=== PATIENT | male | born 1950 | race Hispanic/Latino ===

== ENCOUNTER → 2020-05-08 09:50 | Outpatient (CLI) | payer MEDICARE, SELFPAY ==
[2020-05-08] MEDS: COVID-19 VACC, Ad26(JANSSEN)/PF 0.5 ML IM (10:05)
== END ==
PROVIDERS: Visit Provider Internal Medicine
DX: Z23 Encounter for immunization (principal)
CPT/HCPCS: 0031A; 91303

== ENCOUNTER → 2020-07-12 11:25 | Outpatient (CLI) | payer OTHER, SELFPAY ==
[2020-07-12 13:11] LABS: COVID19 -Nasal RAPID Negative (Negative)
== END ==
PROVIDERS: Visit Provider Physician Assistant
DX: Z20.822 Contact with and (suspected) exposure to COVID-19 (principal)
CPT/HCPCS: 87635; C9803

== ENCOUNTER 2020-07-14 14:07 | Day surgery (SDC) | payer OTHER, SELFPAY ==
[2020-07-14] VITALS (7 sets, daily range): BP systolic 111–132; BP diastolic 58–76; PULSE 63–68; RESP 14–16; TEMP 36.1–36.6; O2SAT 97–100; BMI 24.7
--- NOTE | 2020-07-14 12:03 | PM.HP.1 ---
History of Present Illness History of Present Illness Chief complaint: [facility] [place] Narrative: 70 year old male comes in today for consideration of a screening colonoscopy. Last colonoscopy in 2018, significant for 2 polyps in the ascending and recutm, tubular adenomas. There have been no lower GI symptoms suggesting disease such as change in bowel habits, bleeding, abdominal pain or anemia. There's been no family history of colon cancer or colon polyps. Overall health issues have been stable, including no major cardiac events for at least 6 weeks. PCP: Dr. 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 OSTEOARTHRITIS, MULTIPLE JOINTS Past Surgical History: Neck Right Shoulder Colonoscopy Family History: Both parents of tuberculosis Social History: Marital Status: Children: 4- 2 sons Jacob, 2 daughters Occupation: [employer], retired Household Members: Spouse Meds Home Medications and Allergies Home Medications Medication Instructions Recorded Confirmed Type ASPIRIN (#ASPIRIN) 325 mg PO BID #0 06/25/10 History DICLOFENAC SODIUM (VOLTAREN) 75 mg PO BIDCC #60 10/21/11 Rx lisinopril [Zestril] 20 mg PO BID #180 07/23/12 Rx carvedilol 07/14/20 History insulin aspart U-100 [Novolog unit SUBCUT 07/14/20 History Flexpen U-100 Insulin] Allergies Allergy/AdvReac Type Severity Reaction Status Date / Time Penicillins [PENICILLINS] Allergy Unknown Unverified 06/04/17 12:57 Review of Systems Review of Systems ROS: Yes All systems reviewed with the patient and are negative except as otherwise documented Exam Narrative Exam Narrative: GENERAL: Alert and oriented, appearing stated age and in no acute distress. HEENT: Head normocephalic/atraumatic. Pupils equal, round, and reactive to light and accomodation. Extraocular muscles intact. Tympanic membranes clear. Nasal mucosa moist, septum midline. Oral mucosa moist, no lesions. Neck soft and supple, no lymphadenopathy. LUNGS: Clear to ausculation bilaterally, no wheezes, rhonchi or rales. CV: Normal S1 and S2 with regular rate and rhythm, no audible murmurs, rubs or gallops. ABDOMEN: Soft, non-tender, non-distended, no organomegaly. Positive bowel sounds. EXTREMITIES: No clubbing, cyanosis, or edema. NEURO: Cranial nerves II through XII grossly intact, no focal deficits. PSYCH: Alert and oriented x 3. SKIN: No concerning lesions. Assessment & Plan Assessment & Plan narrative: 1. History of colon polyps 2. Screening for colon cancer Plan for colonoscopy. The nature and character of the procedure as well as anticipated results were discussed. The possibility of not completing the procedure was also discussed. Possible complications including aspiration pneumonia, bleeding, perforation and reaction to medications either for sedation or preparation and missed lesions were discussed. Questions were answered and proceeding to the colonoscopy was elected. Informed consent signed. I sincerely appreciate the referral allowing me to participate in this patient's care. Please contact me with any questions or concerns.
--- NOTE | 2020-07-14 12:09 | PM.OP.ENDO ---
Operative Date/Time/Diagnoses Date of procedure: 07/14/20 Procedure Notes SCOAP/Timeout: 3:10 p.m. Procedure in detail: ENDOSCOPIST: Melissa Collier MD Sedation RN: Zenia Preston RN Sedation start time: 3:11 p.m. Sedation end time: 4:16 p.m. PROCEDURE: Colonoscopy INDICATIONS: 1. History of colon polyps 2. Screening for colon cancer MEDICATION: Levsin 0.125 mg sublingual, incremental doses of Versed and fentanyl until appropriate level sedation achieved. ASA CLASS: 2 CECAL WITHDRAWAL TIME: 14 minutes COMPLICATIONS: None. EXTENT OF PROCEDURE: Cecum. QUALITY OF PREP: Fair with portions of liquid stool. PROCEDURE: Prior to insertion of the colonoscope, a digital rectal examination was accomplished with circumferential palpation of the distal rectal mucosa without significant findings being noted. The high-definition pediatric colonoscope was passed into the rectum in the usual fashion and advanced over to the cecum with difficulty due to tortuosity and redundancy. The ileocecal valve, appendiceal stoma, and medial wall all could be inspected and no abnormalities were seen. ASCENDING COLON: As the colonoscope was withdrawn, care was taken to expose and inspect the haustral folds and no abnormalities were seen. HEPATIC FLEXURE: Normal, no polyps, diverticula or other abnormalities. TRANSVERSE COLON: Normal, no polyps, diverticula or other abnormalities. DESCENDING COLON: Normal, no polyps, diverticula or other abnormalities. SIGMOID COLON: Normal, no polyps, diverticula or other abnormalities. RECTUM: Normal. J maneuver was produced. There was no significant perianal disease. The J maneuver was broken. The remainder of the rectum was inspected and there was minor external hemorrhoid disease. The scope was withdrawn. IMPRESSION: 1. Normal colonoscopy 2. External hemorrhoids PLAN: 1. Due to patient's age, this can be his last screening colonoscopy. The possibility of a missed lesion including a malignancy has been discussed with the patient previously. Potential alarm symptoms have been discussed and should be reported immediately.
[2020-07-14] MEDS: HYOSCYAMINE 0.125 MG TABLET PO (14:42)
[2020-07-14] MEDS: LACTATED RINGERS 1,000 ML 200 ML IV (14:42)
[2020-07-14] MEDS: MIDAZOLAM 5 MG/5 ML VIAL IV (15:58)
[2020-07-14] MEDS: fentaNYL 250 MCG/5 ML INJ IV (15:58)
== END 2020-07-14 17:05 | disposition home or self-care (01) ==
PROVIDERS: Referring Provider Student in an Organized Health Care Education/Training Program; Visit Provider Student in an Organized Health Care Education/Training Program
PROC: 0DJD8ZZ Inspection of Lower Intestinal Tract, Via Natural or Artificial Opening Endoscopic (ICD-10-PCS; CPT 45378; principal; 2020-07-14 15:15)
DX: Z12.11 Encounter for screening for malignant neoplasm of colon (principal); Z86.010 Personal history of colon polyps; K64.4 Residual hemorrhoidal skin tags
CPT/HCPCS: G0105; J2250; J3010

== ENCOUNTER → 2021-03-09 11:32 | Outpatient (CLI) | payer OTHER, SELFPAY ==
[2021-03-09 12:36] LABS: Add Manual Diff / Slide Review NO; Basophils Absolute Auto 100 /uL (0-100); Basophils Percent Auto 1.1 % (0-2); Eosinophils Absolute Auto 200 /uL (0-450); Eosinophils Percent Auto 2.5 % (2-4); Hematocrit 41.8 % (41-53); Hemoglobin 14.3 g/dL (13.5-17.5); Lymphocytes Absolute Auto 2700 /uL (1100-4500); Lymphocytes Percent Auto 29.2 % (25-40); Mean Corpuscular HGB Conc 34.2 % (30-36); Mean Corpuscular Volume 84.8 fL (80-100); Monocytes Absolute Auto 700 /uL (0-900); Monocytes Percent Auto 7.9 % (3-14); Neutrophils Absolute Auto 5400 /uL (1500-7000); Neutrophils Percent Auto 59.3 % (50-75); Platelet Count 390 X10^3/uL (150-400); Red Blood Cell Count 4.92 X10^6/uL (4.5-5.9); Red Cell Distribution Width 14.5 % (11.6-14.8); White Blood Cell Count 9.1 X10^3/uL (4.5-11.0)
[2021-03-09 12:57] LABS: Hemoglobin A1C% w Est Avg Glu 7.3 % (4.0-6.0)
[2021-03-09 13:04] LABS: Erythrocyte Sedimentation Rate 20 MM/HR (0-15)
[2021-03-09 13:26] LABS: Alanine Aminotransferase 24 IU/L (<50); Albumin 4.6 g/dL (3.5-5.0); Albumin Globulin Ratio 1.2 (1.0-2.8); Alkaline Phosphatase 115 U/L (38-126); Aspartate Aminotransferase 33 IU/L (17-59); Bilirubin Total 0.8 mg/dL (0.2-1.3); Blood Urea Nitrogen 27 mg/dL (9-20); Calcium 9.8 mg/dL (8.4-10.2); Carbon Dioxide 26 mmol/L (22-32); Chloride 105 mmol/L (98-107); Globulin 3.7 g/dL (1.7-4.1); Glucose 49 mg/dL (80-110); HEMOLYSIS < 15 (0-50); Potassium 4.5 mmol/L (3.4-5.1); Sodium 142 mmol/L (137-145); Total Protein 8.3 g/dL (6.3-8.2)
[2021-03-09 13:30] LABS: High Sensitivity CRP - Cardiac 0.8 mg/L (1.0-3.0)
== END ==
PROVIDERS: Referring Provider Ophthalmology; Visit Provider Ophthalmology
DX: E11.3591 Type 2 diabetes mellitus with proliferative diabetic retinopathy without macular edema, right eye (principal); H34.8112 Central retinal vein occlusion, right eye, stable
CPT/HCPCS: 36415; 80053; 83036; 85025; 85651; 86140

== ENCOUNTER → 2021-03-12 14:03 | Outpatient (CLI) | payer OTHER, SELFPAY ==
--- NOTE | 2021-03-12 | DI.US.S_ITS ---
PROCEDURE: US CAROTID DOPPLER BI INDICATIONS: CENTRAL RETNAL VEIN OCCLUSION TECHNIQUE: Color and pulse Doppler interrogation was performed of both carotid systems, with image documentation and velocity measurements. COMPARISON: None. FINDINGS: Stenosis calculations are based on SRU (Society of Radiologists in Ultrasound) criteria. Right side: Brachial blood pressure: Not evaluated. Common carotid artery peak systolic velocity: 67 cm/sec. Internal carotid artery peak systolic velocity: 210 cm/sec. Internal carotid artery end diastolic velocity: 66 cm/sec. External carotid artery peak systolic velocity: 173 cm/sec. ICA/CCA peak systolic ratio: 3.2 . Choi scale imaging description: Heavy scattered plaque. Percent internal carotid artery stenosis: 50-69% stenosis . Vertebral artery: Flow direction is antegrade. Left side: Brachial blood pressure: 142/84 mm Hg. Common carotid artery peak systolic velocity: 127 cm/sec. Internal carotid artery peak systolic velocity: 84 cm/sec. Internal carotid artery end diastolic velocity: 25 cm/sec. External carotid artery peak systolic velocity: 126 cm/sec. ICA/CCA peak systolic ratio: 7 . Choi scale imaging description: Mild scattered atheromatous change. Percent internal carotid artery stenosis: Less than 50% . Vertebral artery: Flow direction is antegrade. IMPRESSION: 1. 50-69% right internal carotid artery stenosis. 2. Less than 50% left internal carotid artery stenosis. Dictated by: Cesar Tristan [facility] Interpreted: Peterson Jacome MD on 03/12/2021 at 15:26 Transcribed by: DIONNE on 03/12/2021 at 15:28 Approved by: Peterson Jacome M.D. on 03/12/2021 at 17:29
== END ==
PROVIDERS: PCP Family Medicine; Referring Provider Ophthalmology; Visit Provider Ophthalmology
DX: E11.3591 Type 2 diabetes mellitus with proliferative diabetic retinopathy without macular edema, right eye (principal); H34.8111 Central retinal vein occlusion, right eye, with retinal neovascularization; I65.23 Occlusion and stenosis of bilateral carotid arteries
CPT/HCPCS: 93880

== ENCOUNTER → 2021-07-13 14:23 | Outpatient (CLI) | payer OTHER, SELFPAY ==
[2021-07-13 18:10] LABS: Prostate Specific Antigen 8.26 ng/mL (0.10-4.00)
== END ==
PROVIDERS: PCP Family Medicine; Referring Provider Urology; Visit Provider Urology
DX: R97.20 Elevated prostate specific antigen [PSA] (principal)
CPT/HCPCS: 36415; 84153

== ENCOUNTER 2022-03-11 12:30 | Outpatient (RCR) | payer OTHER, SELFPAY | END 2022-03-11 14:30 | LOC: CAR 12:30 | PROVIDERS: PCP Family Medicine; Referring Provider Surgery; Visit Provider Surgery | DX: Z95.1 Presence of aortocoronary bypass graft (principal) | CPT/HCPCS: 93798 ==

== ENCOUNTER 2022-07-07 19:34 | Emergency (ER) | payer OTHER, SELFPAY ==
[2022-07-07] VITALS (9 sets, daily range): BP systolic 111–124; BP diastolic 55–59; PULSE 77–81; RESP 16–19; TEMP 37; O2SAT 97–99; BMI 26.1
--- NOTE | 2022-07-07 20:09 | DI.RAD.S_ITS ---
PROCEDURE: XR CHEST 1V INDICATIONS: chest pain TECHNIQUE: One view of the chest was acquired. COMPARISON: [facility], , CHEST 1 VIEW, 07/26/2015, 1:19. FINDINGS: Surgical changes and devices: Postsurgical changes demonstrated in the mediastinum compatible with prior CABG. Lungs and pleura: There are low lung volumes. Evaluation limited due to lordotic projection. No definite acute airspace opacities. No pleural effusions or pneumothorax. Mediastinum: Mediastinal contours appear normal. Heart size is normal. Bones and chest wall: No suspicious bony lesions. Overlying soft tissues appear unremarkable. IMPRESSION: 1. No definite acute cardiopulmonary disease, with evaluation limited by low lung volumes and lordotic projection. Dictated by: Steve Chang M.D. on 07/07/2022 at 21:02 Approved by: Steve Chang M.D. on 07/07/2022 at 21:04
[2022-07-07] MEDS: SODIUM CHLORIDE 0.9% 1,000 ML 150 ML IV (20:18)
[2022-07-07 20:19] LABS: Add Manual Diff / Slide Review NO; Basophils Absolute Auto 100 /uL (0-100); Basophils Percent Auto 1.2 % (0-2); Eosinophils Absolute Auto 300 /uL (0-450); Eosinophils Percent Auto 3.4 % (2-4); Hematocrit 34.7 % (41-53); Hemoglobin 11.9 g/dL (13.5-17.5); Lymphocytes Absolute Auto 2900 /uL (1100-4500); Lymphocytes Percent Auto 36.5 % (25-40); Mean Corpuscular HGB Conc 34.2 % (30-36); Mean Corpuscular Hemoglobin 29.7 PG (26-34); Mean Corpuscular Volume 86.8 fL (80-100); Monocytes Absolute Auto 800 /uL (0-900); Neutrophils Absolute Auto 3900 /uL (1500-7000); Neutrophils Percent Auto 48.9 % (50-75); Platelet Count 336 X10^3/uL (150-400); Red Blood Cell Count 3.99 X10^6/uL (4.5-5.9); Red Cell Distribution Width 14.3 % (11.6-14.8)
[2022-07-07 20:20] LABS: INR 0.9 (0.9-1.3); Prothrombin Time 10.8 SECONDS (10.1-12.7)
[2022-07-07 20:22] LABS: PTT Partial Thromboplastin Tim 39 SECONDS (26-36)
[2022-07-07 20:25] LABS: Alanine Aminotransferase 31 IU/L (<50); Albumin 4.3 g/dL (3.5-5.0); Albumin Globulin Ratio 1.1 (1.0-2.8); Alkaline Phosphatase 144 U/L (38-126); Aspartate Aminotransferase 41 IU/L (17-59); BUN Creatinine Ratio 17.5 (6-22); Bilirubin Total 0.8 mg/dL (0.2-1.3); Blood Urea Nitrogen 48 mg/dL (9-20); Calcium 9.1 mg/dL (8.4-10.2); Carbon Dioxide 21 mmol/L (22-32); Chloride 100 mmol/L (98-107); Creatine Kinase 148 U/L (55-170); Estimated Glomerular Filt Rate 24 mL/min (>60); Glucose 145 mg/dL (80-110); HEMOLYSIS 61 (0-50); Lipase 176 U/L (23-300); Sodium 136 mmol/L (137-145); Total Protein 8.3 g/dL (6.3-8.2)
[2022-07-07 20:26] LABS: Potassium 4.6 mmol/L (3.4-5.1)
--- NOTE | 2022-07-07 20:29 | ED_ITS ---
HPI - Syncope General Chief Complaint: Syncope Stated Complaint: Syncope Time Seen by Provider: 07/07/22 19:37 Source: patient, family and EMS Mode of arrival: EMS Limitations: no limitations History of Present Illness HPI narrative: Patient is a 72-year-old male [place] Citizen speaking here with family who is interpreting presenting today after syncopal episode. He has a history of coronary artery disease, PCI LAD in 2014 and CABG in 2021 hyperlipidemia, reports that he was outside he came into the garage felt very lightheaded and passed out for 1-2 minutes. There was no shaking family found him he was awake alert and oriented. He denies any chest pain or palpitations. No shortness of breath. He has been outside a lot today not drinking a lot of water. He denies nausea or vomiting no abdominal pain overall feels okay now. He was in his normal state of health this morning no fevers. He is followed by cardiology Dr. Rowe. Related Data Home Medications Medication Instructions Recorded Confirmed ASPIRIN (#ASPIRIN) 325 mg PO BID ##0 06/25/10 carvedilol 25 mg tablet 07/14/20 insulin aspart U-100 100 unit/mL unit SUBCUT 07/14/20 (3 mL) subcutaneous pen (Novolog FlexPen U-100 Insulin aspart) Previous Rx's Medication Instructions Recorded DICLOFENAC SODIUM (VOLTAREN) 75 mg PO BIDCC ##60 10/21/11 lisinopril 20 mg tablet (Zestril) 20 mg PO BID ##180 07/23/12 Allergies Allergy/AdvReac Type Severity Reaction Status Date / Time Penicillins [PENICILLINS] Allergy Unknown Verified 07/07/22 20:18 Review of Systems Review of Systems ROS Unobtainable: All systems reviewed & are unremarkable except as noted in HPI and below Patient History Social History household members: significant other Smoking Status: Never smoker alcohol intake: never Smoking Status: Never smoker Substance Use Type: does not use Exam Initial Vital Signs Initial Vital Signs: Vital Signs Pulse Rate 80 07/07/22 19:39 Pulse Oximetry 98 07/07/22 19:39 GENERAL: Alert pleasant 72-year-old male and in no acute distress. HEENT: Head atraumatic,EOMI, pupils reactive, face symmetric, moist mucous membranes CARDIOVASCULAR: Regular rate and rhythm without murmurs, rubs or gallops. RESPIRATORY: Breath sounds equal bilaterally, no wheezes rales or rhonchi. ABDOMEN: Soft, nontender. Normoactive bowel sounds all 4 quadrants. No guarding or rebound. EXTREMITIES: Normal range of motion, no clubbing or edema. Neurovascularly intact NEUROLOGICAL: Alert and oriented x4.Normal gait and speech. Cranial nerves II through XII grossly intact. Good [id number]-[id number], good vddm-fa-[id number], strength equal bilaterally, no dysarthria or aphasia, sensation in tact to soft touch bilaterally, no visual changes, no facial droop SKIN: Warm, dry, no laceration, no petechiae, no rashes or lesions. Scores NIH Stroke Scale Level of Conciousness: Alert, keenly responsive Ask month/age: Answers both questions correctly. Open/close eyes, close hand: Performs both tasks correctly Best gaze horizontal: Normal Visual cabrera: No visual loss Facial palsy: Normal symetrical movement Left arm drift: No drift for full 10 sec Right arm drift: No drift for full 10 sec Left leg drift: No drift for full 5 sec Right leg drift: No drift for full 5 sec Limb ataxia: Absent Sensory on face/arms/legs: Normal, no sensory loss Best language: No aphasia, normal Dysarthria: Normal Extinction or inattention: No abnormality Total NIH Stroke scale score: 0 Course Orders Ordered: ED Orders 07/07/22 19:30 Complete Blood Count AUTO DIFF Stat Comprehensive Metabolic Panel Stat Lipase Stat PTT Partial Thromboplastin Caleb Stat Prothrombin Time INR Stat Troponin & CK Cardiac Panel Stat 07/07/22 20:09 XR chest 1V Stat EKG-12 Lead Stat 07/07/22 20:30 EKG-12 Lead Stat 07/07/22 20:57 CT head/brain wo con Stat 07/07/22 21:35 Trop I [Troponin I] Stat 07/07/22 22:10 BMP [Basic Metabolic Panel] Stat Discontinued Medications Sodium Chloride (Normal Saline 0.9%) 1,000 mls @ 150 mls/hr IV CONT CLAUDE Last Infusion: 07/07/22 22:09 Dose: 0 mls/hr Documented By: Admin: 07/07/22 20:18 Dose: 150 mls/hr Documented By: HALINA Sodium Chloride (Normal Saline 0.9%) 1,000 mls @ 1,000 mls/hr IV BOLUS ONE Stop: 07/07/22 21:28 Last Infusion: 07/07/22 21:57 Dose: 0 mls/hr Documented By: Admin: 07/07/22 20:40 Dose: 1,000 mls/hr Documented By: HALINA Vital Signs Vital signs: Vital Signs - 8 hr 07/07/22 19:43 07/07/22 19:39 07/07/22 20:00 Temperature 98.6 F Pulse Rate 81 80 Respiratory Rate 18 Blood Pressure 124/59 L 111/55 L Pulse Oximetry 99 98 Oxygen Delivery Method Room Air 07/07/22 20:00 07/07/22 20:30 07/07/22 20:30 Temperature Pulse Rate 79 79 Respiratory Rate 19 19 Blood Pressure 111/57 L Pulse Oximetry 98 97 Oxygen Delivery Method 07/07/22 21:00 07/07/22 21:00 07/07/22 21:30 Temperature Pulse Rate 77 77 Respiratory Rate 18 18 Blood Pressure 114/59 L Pulse Oximetry 99 99 Oxygen Delivery Method 07/07/22 22:00 07/07/22 22:30 07/07/22 23:00 Temperature Pulse Rate 77 77 77 Respiratory Rate 16 16 16 Blood Pressure 114/59 L Pulse Oximetry 98 98 98 Oxygen Delivery Method MDM - Syncope Lab Data 07/07/22 19:30 07/07/22 22:10 Labs: Lab Results 07/07/22 07/07/22 07/07/22 Range/Units 19:30 19:30 19:30 WBC 8.0 (4.5-11.0) X10^3/uL RBC 3.99 L (4.5-5.9) X10^6/uL Hgb 11.9 L (13.5-17.5) g/dL Hct 34.7 L (41-53) % MCV 86.8 (80-100) fL MCH 29.7 (26-34) PG MCHC 34.2 (30-36) % RDW 14.3 (11.6-14.8) % Plt Count 336 (150-400) X10^3/uL Neut % (Auto) 48.9 L (50-75) % Lymph % (Auto) 36.5 (25-40) % [place] % (Auto) 10.0 (3-14) % Eos % (Auto) 3.4 (2-4) % Baso % (Auto) 1.2 (0-2) % Neut # (Auto) 3900 (8100-4508) /uL Lymph # (Auto) 2900 (2264-2006) /uL [place] # (Auto) 800 (0-900) /uL Eos # (Auto) 300 (0-450) /uL Baso # (Auto) 100 (0-100) /uL PT 10.8 (10.1-12.7) SECONDS INR 0.9 (0.9-1.3) APTT 39 H (26-36) SECONDS Sodium 136 L (137-145) mmol/L Potassium 4.6 (3.4-5.1) mmol/L Chloride 100 (98-107) mmol/L Carbon Dioxide 21 L (22-32) mmol/L BUN 48 H (9-20) mg/dL Creatinine 2.74 H (0.66-1.25) mg/dL Estimated GFR 24 L (>60) mL/min BUN/Creatinine Ratio 17.5 (6-22) Glucose 145 H (80-110) mg/dL Calcium 9.1 (8.4-10.2) mg/dL Total Bilirubin 0.8 (0.2-1.3) mg/dL AST 41 (17-59) IU/L ALT 31 (<50) IU/L Alkaline Phosphatase 144 H (38-126) U/L Total Creatine Kinase 148 (55-170) U/L CK-MB (CK-2) 1.72 (<2.37) ng/mL CK-MB (CK-2) Rel Index 1.2 L (1.5-5.0) % Troponin I < 0.012 (0.01-0.034) ng/mL Total Protein 8.3 H (6.3-8.2) g/dL Albumin 4.3 (3.5-5.0) g/dL Globulin 4.0 (1.7-4.1) g/dL Albumin/Globulin Ratio 1.1 (1.0-2.8) Lipase 176 (23-300) U/L 07/07/22 07/07/22 Range/Units 21:35 22:10 WBC (4.5-11.0) X10^3/uL RBC (4.5-5.9) X10^6/uL Hgb (13.5-17.5) g/dL Hct (41-53) % MCV (80-100) fL MCH (26-34) PG MCHC (30-36) % RDW (11.6-14.8) % Plt Count (150-400) X10^3/uL Neut % (Auto) (50-75) % Lymph % (Auto) (25-40) % [place] % (Auto) (3-14) % Eos % (Auto) (2-4) % Baso % (Auto) (0-2) % Neut # (Auto) (1589-0170) /uL Lymph # (Auto) (2311-1911) /uL [place] # (Auto) (0-900) /uL Eos # (Auto) (0-450) /uL Baso # (Auto) (0-100) /uL PT (10.1-12.7) SECONDS INR (0.9-1.3) APTT (26-36) SECONDS Sodium 140 (137-145) mmol/L Potassium 4.0 (3.4-5.1) mmol/L Chloride 107 (98-107) mmol/L Carbon Dioxide 22 (22-32) mmol/L BUN 43 H (9-20) mg/dL Creatinine 2.23 H (0.66-1.25) mg/dL Estimated GFR 30 L (>60) mL/min BUN/Creatinine Ratio 19.3 (6-22) Glucose 98 (80-110) mg/dL Calcium 8.0 L (8.4-10.2) mg/dL Total Bilirubin (0.2-1.3) mg/dL AST (17-59) IU/L ALT (<50) IU/L Alkaline Phosphatase (38-126) U/L Total Creatine Kinase (55-170) U/L CK-MB (CK-2) (<2.37) ng/mL CK-MB (CK-2) Rel Index (1.5-5.0) % Troponin I < 0.012 (0.01-0.034) ng/mL Total Protein (6.3-8.2) g/dL Albumin (3.5-5.0) g/dL Globulin (1.7-4.1) g/dL Albumin/Globulin Ratio (1.0-2.8) Lipase (23-300) U/L Point of Care Testing Glucose POC 160 Imaging Data Chest x-ray: Radiologist's Impression: PROCEDURE:? XR CHEST 1V ? INDICATIONS:? chest pain ? TECHNIQUE:? One view of the chest was acquired.? ? COMPARISON:? [facility], , CHEST 1 VIEW, 07/26/2015, 1:19. ? FINDINGS:? ? Surgical changes and devices:? Postsurgical changes demonstrated in the mediastinum compatible with prior CABG. ? Lungs and pleura:? There are low lung volumes.? Evaluation limited due to lordotic projection.? No definite acute airspace opacities.? No pleural effusions or pneumothorax. ? ? Mediastinum:? Mediastinal contours appear normal.? Heart size is normal.? ? Bones and chest wall:? No suspicious bony lesions.? Overlying soft tissues appear unremarkable.? ? IMPRESSION:? ? 1. No definite acute cardiopulmonary disease, with evaluation limited by low lung volumes and lordotic projection.? ? Dictated by: Steve Chang M.D. on 07/07/2022 at 21:0 CT scan - head: Radiologist's Impression: PROCEDURE:? CT HEAD/BRAIN WO CON ? INDICATIONS:? syncope ? TECHNIQUE:? Noncontrast 4.5 mm thick angled axial sections acquired from the foramen magnum to the vertex, with coronal and sagittal reformats.? For radiation dose reduction, the following was used:? automated exposure control, adjustment of mA and/or kV according to patient size.? ? COMPARISON:? None. ? FINDINGS:? Image quality:? Excellent.? ? CSF spaces:? Basal cisterns are patent.? No extra-axial fluid collections.? There is mild cerebral volume loss, with resultant ventricular and sulcal prominence.? ? Brain:? No intracranial hemorrhage, mass, or mass effect.? There are subcortical, periventricular and deep white matter hypodensities consistent with mild chronic small vessel ischemic changes.? The ward-white matter junction appears preserved.? There is intracranial internal carotid artery atherosclerosis.? ? Skull and face:? Calvarium and visualized facial bones appear intact, without suspicious lesions.? ? Sinuses:? Visualized sinuses and mastoids are clear.? ? IMPRESSION:? ? 1. No acute intracranial abnormality. ? ? Dictated by: Steve Chang M.D. on 07/07/2022 at 21:30? ECG Data Interpretation: Sinus rhythm rate 78 CA interval 180 QRS 64 QTC 414 T-wave inversion noted in lead [address] elevations no priors to compare EKG 2. Sinus rhythm with persistent T-wave inversion in lead [address] elevations or depressions MDM Narrative Medical decision making narrative: Patient is a 72-year-old male history coronary artery disease, PCI LAD in 2014 and CABG in 2021 hyperlipidemia presents today with a syncopal episode. He has no chest pain. He is 2 EKGs which are abnormal but probably chronic there is no change between them he is not having chest pain. He is 2- troponins. He has an increased creatinine of 2.74 today. Previous was 1.42. Creatinine did improve after 2 L of fluid to 2.2. I suspect he has some underlying chronic kidney disease unclear what his baseline is. Syncopal episode today is likely secondary to dehydration. EMS also reports significant positive orthostatic vitals. No evidence of infection. He overall appears well. Discharge Plan Departure Patient Disposition: Home Clinical Impression: Syncope due to orthostatic hypotension, Dehydration Instructions: DI for Syncope in Adults (Fainting), DI for Dehydration -- Adult Activity Restrictions/Additional Instructions: *You have been diagnosed with dehydration, *What to do: At this time he likely passed out due to dehydration. Your kidneys are abnormal please be sure that this is rechecked and followed by her primary care provider *Continue to take medications as directed *Follow up with your primary care provider in 2-3 days or call [phone] *Return to ER if you should have recurrent episode of syncope chest pain palpitations or any new, worsening or concerning symptoms Prescriptions: No Action ASPIRIN (#ASPIRIN) 325 mg PO BID Qty: 0 DICLOFENAC SODIUM (VOLTAREN) 75 mg PO BIDCC Qty: 60 0RF lisinopril [Zestril] 20 MG tablet 20 mg PO BID Qty: 180 3RF insulin aspart U-100 [Novolog FlexPen U-100 Insulin] 100 unit/mL (3 mL) insulin pen SUBCUT carvedilol 25 mg tablet Referrals: Debra Redmond MD [Primary Care Provider] - Stand Alone Forms: Patient Portal/API
[2022-07-07 20:36] LABS: Troponin I < 0.012 ng/mL (0.01-0.034)
[2022-07-07 20:40] LABS: CKMB % Relative Index 1.2 % (1.5-5.0); Creatine Kinase MB 1.72 ng/mL (<2.37)
[2022-07-07] MEDS: SODIUM CHLORIDE 0.9% 1,000 ML 1000 ML IV (20:40)
--- NOTE | 2022-07-07 20:57 | DI.CT.S_ITS ---
PROCEDURE: CT HEAD/BRAIN WO CON INDICATIONS: syncope TECHNIQUE: Noncontrast 4.5 mm thick angled axial sections acquired from the foramen magnum to the vertex, with coronal and sagittal reformats. For radiation dose reduction, the following was used: automated exposure control, adjustment of mA and/or kV according to patient size. COMPARISON: None. FINDINGS: Image quality: Excellent. CSF spaces: Basal cisterns are patent. No extra-axial fluid collections. There is mild cerebral volume loss, with resultant ventricular and sulcal prominence. Brain: No intracranial hemorrhage, mass, or mass effect. There are subcortical, periventricular and deep white matter hypodensities consistent with mild chronic small vessel ischemic changes. The ward-white matter junction appears preserved. There is intracranial internal carotid artery atherosclerosis. Skull and face: Calvarium and visualized facial bones appear intact, without suspicious lesions. Sinuses: Visualized sinuses and mastoids are clear. IMPRESSION: 1. No acute intracranial abnormality. Dictated by: Steve Chang M.D. on 07/07/2022 at 21:30 Approved by: Steve Chang M.D. on 07/07/2022 at 21:32
[2022-07-07 22:05] LABS: Troponin I < 0.012 ng/mL (0.01-0.034)
[2022-07-07 22:46] LABS: BUN Creatinine Ratio 19.3 (6-22); Blood Urea Nitrogen 43 mg/dL (9-20); Carbon Dioxide 22 mmol/L (22-32); Chloride 107 mmol/L (98-107); Estimated Glomerular Filt Rate 30 mL/min (>60); Glucose 98 mg/dL (80-110); HEMOLYSIS < 15 (0-50); Sodium 140 mmol/L (137-145)
== END 2022-07-07 23:12 | disposition home or self-care (01) ==
PROVIDERS: Emergency Provider Emergency Medicine; PCP Family Medicine
DX: I95.1 Orthostatic hypotension (principal); E86.0 Dehydration; R07.9 Chest pain, unspecified
CPT/HCPCS: 36415; 70450; 71045; 80048; 80053; 82550; 82553; 83690; 84484; 85025; 85610; 85730; 93005; 99284

== ENCOUNTER → 2022-08-12 11:24 | Outpatient (CLI) | payer OTHER, SELFPAY ==
[2022-08-12 12:41] LABS: BUN Creatinine Ratio 20.7 (6-22); Blood Urea Nitrogen 31 mg/dL (9-20); Calcium 9.1 mg/dL (8.4-10.2); Carbon Dioxide 29 mmol/L (22-32); Chloride 102 mmol/L (98-107); Estimated Glomerular Filt Rate 49 mL/min (>60); Glucose 184 mg/dL (80-110); HEMOLYSIS < 15 (0-50); Potassium 4.8 mmol/L (3.4-5.1); Sodium 139 mmol/L (137-145)
== END ==
PROVIDERS: PCP Family Medicine; Referring Provider Internal Medicine; Visit Provider Internal Medicine
DX: I10 Essential (primary) hypertension (principal)
CPT/HCPCS: 36415; 80048

== ENCOUNTER → 2023-05-29 09:11 | Outpatient (CLI) | payer OTHER, SELFPAY ==
--- NOTE | 2023-05-29 09:12 | DI.US.S_ITS ---
PROCEDURE: US ABDOMEN LIMITED INDICATIONS: ELEVATED LIVER FUNCTION TESTS TECHNIQUE: Real-time scanning was performed of the abdominal and retroperitoneal organs, with image documentation. COMPARISON: None. FINDINGS: Liver: Liver is normal in size and heterogeneous in echotexture. Gallbladder: There is a 2.9 x 2.2 cm gallstone. The gallstones mobile. No gallbladder wall thickening. No pericholecystic edema. Negative sonographic Amezcua's sign. Biliary ducts: Intrahepatic bile ducts are non-dilated. Extrahepatic bile duct caliber measures 7.9 mm. Normal is 6-7 mm or less in diameter, or 10 mm or less post-cholecystectomy. Pancreas: Not visualized. Miscellaneous: No free abdominal fluid. IMPRESSION: 1. Cholelithiasis with a 2.9 cm mobile gallstone. No ultrasound findings to suggest acute cholecystitis. 2. Heterogeneous echotexture of liver consistent with hepatocellular disease such as hepatitis. Recommend clinical correlation. 3. Common bile duct is mildly dilated measuring 7.9 mm. If there is clinical suspicion for biliary obstruction, consider MRCP for further evaluation. 4. Pancreas not visualized. Dictated by: Lizzie Alonzo M.D. on 05/29/2023 at 14:36 Approved by: Lizzie Alonzo M.D. on 05/29/2023 at 14:38
== END ==
PROVIDERS: PCP Family Medicine; Referring Provider Family Medicine; Visit Provider Family Medicine
DX: K80.20 Calculus of gallbladder without cholecystitis without obstruction (principal); K83.8 Other specified diseases of biliary tract; R79.89 Other specified abnormal findings of blood chemistry
CPT/HCPCS: 76705

== ENCOUNTER → 2023-10-17 07:53 | Outpatient (CLI) | payer OTHER, SELFPAY ==
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
== END ==
LOC: MRI 07:54
PROVIDERS: PCP Family Medicine; Referring Provider Registered Nurse; Visit Provider Registered Nurse
DX: M47.816 Spondylosis without myelopathy or radiculopathy, lumbar region; M47.817 Spondylosis without myelopathy or radiculopathy, lumbosacral region; M51.36 Other intervertebral disc degeneration, lumbar region; M51.37 Other intervertebral disc degeneration, lumbosacral region; M48.061 Spinal stenosis, lumbar region without neurogenic claudication; M48.07 Spinal stenosis, lumbosacral region; R93.7 Abnormal findings on diagnostic imaging of other parts of musculoskeletal system
CPT/HCPCS: 72148

== ENCOUNTER → 2023-11-07 08:04 | Outpatient (CLI) | payer OTHER, SELFPAY ==
[2023-11-07 10:19] LABS: Alanine Aminotransferase 38 IU/L (<50); Albumin 3.7 g/dL (3.5-5.0); Albumin Globulin Ratio 1.3 (1.0-2.8); Alkaline Phosphatase 105 U/L (38-126); Aspartate Aminotransferase 40 IU/L (17-59); BUN Creatinine Ratio 14.4 (6-22); Blood Urea Nitrogen 17 mg/dL (9-20); Calcium 9.1 mg/dL (8.4-10.2); Carbon Dioxide 25 mmol/L (22-32); Chloride 105 mmol/L (98-107); Estimated Glomerular Filt Rate > 60 mL/min (>60); Globulin 2.9 g/dL (1.7-4.1); Glucose 93 mg/dL (80-110); HEMOLYSIS < 15 (0-50); Potassium 4.9 mmol/L (3.4-5.1); Sodium 138 mmol/L (137-145); Total Protein 6.6 g/dL (6.3-8.2)
[2023-11-07 13:45] LABS: Free T4, Direct Thyroxine 1.05 ng/dL (0.78-2.19)
[2023-11-07 13:59] LABS: Thyroid Stimulating Hormone 2.51 uIU/mL (0.47-4.68)
== END ==
PROVIDERS: PCP Family Medicine; Referring Provider Internal Medicine; Visit Provider Internal Medicine
DX: R50.9 Fever, unspecified (principal); I10 Essential (primary) hypertension
CPT/HCPCS: 36415; 80053; 84439; 84443

== ENCOUNTER 2023-12-06 21:46 | Emergency (ER) | payer OTHER, SELFPAY ==
[2023-12-06 22:17] VITALS: PULSE 78; O2SAT 98
[2023-12-06 22:20] VITALS: BP 121/58; PULSE 77; RESP 20; TEMP 36.3; O2SAT 96; BMI 24.3
[2023-12-06 22:30] VITALS: PULSE 78; O2SAT 97
[2023-12-06 23:00] VITALS: PULSE 76; O2SAT 96
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
[2023-12-06 23:30] VITALS: PULSE 78; O2SAT 97
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
[2023-12-06 23:42] VITALS: BP 127/60; PULSE 80; O2SAT 97
[2023-12-07] VITALS: BP 131/60; PULSE 79; O2SAT 96
[2023-12-07 00:30] VITALS: BP 134/65; PULSE 77; O2SAT 97
== END 2023-12-07 00:44 | disposition home or self-care (01) ==
PROVIDERS: Emergency Provider Emergency Medicine; PCP Family Medicine
DX: S16.1XXA Strain of muscle, fascia and tendon at neck level, initial encounter (principal); S09.90XA Unspecified injury of head, initial encounter; V89.2XXA Person injured in unspecified motor-vehicle accident, traffic, initial encounter; Z79.899 Other long term (current) drug therapy
CPT/HCPCS: 70450; 72125; 99283; 99284

== ENCOUNTER → 2024-03-24 12:34 | Outpatient (CLI) | payer OTHER, SELFPAY ==
--- NOTE | 2024-03-24 12:36 | DI.RAD.S_ITS ---
PROCEDURE: XR CHEST 2V INDICATIONS: COUGH TECHNIQUE: 2 views of the chest were acquired. COMPARISON: [facility], CR, XR CHEST 1V, 07/07/2022, 20:06. FINDINGS: Surgical changes and devices: Sternal wires and cervical fixation plate. Lungs and pleura: Lungs are clear. No pleural effusions or pneumothorax. Mediastinum: Mediastinal contours are normal. Heart size is enlarged. Bones and chest wall: No suspicious bony abnormalities. Soft tissues appear unremarkable. IMPRESSION: No acute pulmonary process. Dictated by: Jessica Huerta M.D. on 03/24/2024 at 21:20 Approved by: Jessica Huerta M.D. on 03/24/2024 at 21:20
== END ==
LOC: RAD 12:36
PROVIDERS: PCP Family Medicine; Referring Provider Family Medicine; Visit Provider Family Medicine
DX: R05.1 Acute cough (principal); I51.7 Cardiomegaly
CPT/HCPCS: 71046

== ENCOUNTER → 2024-11-29 08:54 | Outpatient (CLI) | payer OTHER, SELFPAY ==
[2024-11-29 09:43] LABS: Blood Urea Nitrogen 18 mg/dL (9-20); Calcium 9.4 mg/dL (8.4-10.2); Carbon Dioxide 23 mmol/L (22-32); Chloride 101 mmol/L (98-107); Estimated Glomerular Filt Rate > 60 mL/min (>60); Glucose 180 mg/dL (70-99); HEMOLYSIS 42 (0-50); Potassium 3.8 mmol/L (3.4-5.1); Sodium 137 mmol/L (137-145)
== END ==
PROVIDERS: PCP Family Medicine; Referring Provider Internal Medicine; Visit Provider Internal Medicine
DX: I10 Essential (primary) hypertension (principal)
CPT/HCPCS: 36415; 80048